=== PATIENT | female | born 1970 | race Caucasian/White ===

== ENCOUNTER 2024-03-25 03:42 | Inpatient (IN) | payer MEDICAID, OTHER ==
[~2024-03-25] VITALS: Ht 162.6 cm; Wt 89.7 kg
[2024-03-25 04:28] VITALS: PULSE 98; RESP 16; O2SAT 91
[2024-03-25] MEDS: cloNIDine HCL 0.1 MG TAB PO ONE (04:41)
[2024-03-25] MEDS: hydrALAZINE HCL 20 MG/ML VL IV ONE (04:42)
[2024-03-25 04:47] LABS: Basophils # (auto) 0.1 10 ^3/uL (0-0.2); Basophils % (auto) 0.9 % (0.0-2.0); Eosinophils # (auto) 0.4 10 ^3/uL (0-0.8); Eosinophils % (auto) 4.7 % (0.0-7.0); Hematocrit 31.2 % (36.0-46.0); Hemoglobin 10.6 g/dL (12.2-16.2); Lymphocytes # (auto) 1.6 10 ^3/uL (0.4-5.4); Mean Corpuscular Hemoglobin 30.4 pg (28.0-32.0); Mean Corpuscular Volume 89.5 fL (80.0-100.0); Monocytes # (auto) 0.5 10 ^3/uL (0-1.3); Monocytes % (auto) 6.5 % (0.0-12.0); Neutrophils # (auto) 5.7 10 ^3/uL (1.6-8.6); Neutrophils % (auto) 68.9 % (37.0-80.0); Red Blood Cells 3.48 10^6/uL (4.0-5.20); Red Cell Distribution Width 13.8 % (11.8-14.3); White Blood Cell 8.3 10^3/uL (4.4-10.8)
[2024-03-25 04:57] LABS: Alanine Aminotransferase 17 U/L (7-40); Albumin 3.5 g/dL (3.2-4.8); Alkaline Phosphatase 43 U/L (46-116); Anion Gap 7 (5-15); Aspartate Aminotransferase 17 U/L (13-40); Bilirubin, Total < 0.2 mg/dL (0.2-1.0); Blood Urea Nitrogen 36 mg/dL (9-23); Calcium 8.5 mg/dL (8.7-10.4); Carbon Dioxide 19 mmol/L (20-30); Chloride 114 mmol/L (98-107); Glucose 63 mg/dL (74-106); Potassium 4.8 mmol/L (3.5-5.1); Sodium 140 mmol/L (136-145); Total Protein 6.1 g/dL (5.7-8.2)
[2024-03-25] MEDS: DEXTROSE 10% 250 ML Bag IV ONE (04:57)
[2024-03-25] MEDS: DEXTROSE (50%) 50ML SYRG IV ONE (05:15)
[2024-03-25] MEDS ORDERED: D5W/LACTATED RINGERS 1,000 ML IV ONE (05:15)
[2024-03-25] MEDS: DEXTROSE 10% 1,000 ML IV ONE (05:55)
[2024-03-25] MEDS ORDERED: ONDANSETRON HCL 4 MG/2 ML VIAL IV PRN (07:00)
[2024-03-25] MEDS ORDERED: ACETAMINOPHEN 325 MG TAB PO PRN (07:00)
[2024-03-25] MEDS ORDERED: DEXTROSE (50%) 50ML SYRG IV PRN (07:00)
[2024-03-25] MEDS: DEXTROSE 10% 1,000 ML IV SCH (07:00)
[2024-03-25 07:32] LABS: Urine Blood 1+ /uL (Negative); Urine Clarity Turbid (Clear); Urine Color Colorless (Yellow); Urine Protein, UAD 3+ (Negative); Urine Specific Gravity 1.011 (1.001-1.035); Urine Urobilinogen Normal (Negative); Urine pH 6.5 (5.0-9.0)
[2024-03-25 07:44] VITALS: PULSE 93; RESP 15; O2SAT 100
[2024-03-25] MEDS: InsuLIN REG 1unit/0.01ml Soln (100units/ml) SC SCH (08:00)
[2024-03-25] MEDS: ACCU-CHEK COMFORT CURVE STRIP VI SCH (08:00)
[2024-03-25 09:04] LABS: Creatinine, Urine 40.43 mg/dL (30.0-125.0)
[2024-03-25 09:07] LABS: Protein, Urine 658.2 mg/dL (0.0-11.9)
[2024-03-25] MEDS: amLODIPine BESYLATE 5 MG TAB PO SCH (10:12)
[2024-03-25 11:02] LABS: Triglycerides 111 mg/dL (< 150)
[2024-03-25 11:03] LABS: LDL Cholesterol 64 mg/dL (< 100)
[2024-03-25 11:04] LABS: Cholesterol 159 mg/dL (< 200); HDL Cholesterol 72 mg/dL (40-59)
[2024-03-25] MEDS: SODIUM CHLORIDE 0.9% 1,000 ML IV SCH (13:00)
[2024-03-25 17:38] VITALS: BP 132/77; PULSE 86; RESP 19; TEMP 98.2; O2SAT 98
[2024-03-25] MEDS ORDERED: METF-371 PO (17:59)
[2024-03-25] MEDS ORDERED: GLIP5TAB21 PO (17:59)
[2024-03-25] MEDS ORDERED: GABA800T97 PO (17:59)
[2024-03-25] MEDS ORDERED: ATOR20TA50 PO (17:59)
[2024-03-25] MEDS ORDERED: INSU100I70 SC (17:59)
[2024-03-25] MEDS ORDERED: BENA-36 PO (17:59)
[2024-03-25] MEDS ORDERED: AMIT-256 PO (17:59)
[2024-03-25] MEDS ORDERED: DORZ2SOL26 EACHEYE (18:00)
[2024-03-25] MEDS ORDERED: FENO48TA13 PO (18:01)
[2024-03-25 20:00] VITALS: PULSE 94; RESP 20; O2SAT 99
[2024-03-25 21:00] VITALS: BP 161/94; PULSE 94; RESP 20; TEMP 98.2; O2SAT 99
[2024-03-25] MEDS: cefTRIAXone 1GM/50ML D5W 50 ML IV ONE (22:40)
[2024-03-26] VITALS (8 sets, daily range): BP systolic 127–153; BP diastolic 57–79; PULSE 85–95; RESP 18–20; TEMP 97.8–98.3; O2SAT 96–98
[2024-03-26] MEDS: hydrALAZINE HCL 20 MG/ML VL IV PRN (04:10)
[2024-03-26 07:04] LABS: Basophils # (auto) 0.1 10 ^3/uL (0-0.2); Basophils % (auto) 1.2 % (0.0-2.0); Eosinophils # (auto) 0.4 10 ^3/uL (0-0.8); Hematocrit 27.5 % (36.0-46.0); Hemoglobin 9.1 g/dL (12.2-16.2); Lymphocytes # (auto) 2.2 10 ^3/uL (0.4-5.4); Lymphocytes % (auto) 31.5 % (10.0-50.0); Mean Corpuscular Hemoglobin 29.4 pg (28.0-32.0); Mean Corpuscular Hgb Conc. 33.2 g/dL (32.0-36.0); Mean Corpuscular Volume 88.5 fL (80.0-100.0); Monocytes # (auto) 0.4 10 ^3/uL (0-1.3); Monocytes % (auto) 6.1 % (0.0-12.0); Neutrophils # (auto) 3.9 10 ^3/uL (1.6-8.6); Neutrophils % (auto) 56.2 % (37.0-80.0); Red Blood Cells 3.11 10^6/uL (4.0-5.20); Red Cell Distribution Width 13.9 % (11.8-14.3)
[2024-03-26 07:07] LABS: Alanine Aminotransferase 13 U/L (7-40); Albumin 2.8 g/dL (3.2-4.8); Alkaline Phosphatase 39 U/L (46-116); Anion Gap 8 (5-15); Aspartate Aminotransferase 13 U/L (13-40); BUN/Creatinine Ratio 10.9 (10.0-20.0); Bilirubin, Total 0.2 mg/dL (0.2-1.0); Blood Urea Nitrogen 31 mg/dL (9-23); Calcium 8.2 mg/dL (8.7-10.4); Carbon Dioxide 16 mmol/L (20-30); Chloride 116 mmol/L (98-107); Creatine Kinase IFCC 103 U/L (34-145); Glucose 100 mg/dL (74-106); Magnesium 1.9 mg/dL (1.6-2.6); Sodium 140 mmol/L (136-145); Total Protein 4.9 g/dL (5.7-8.2)
[2024-03-26] MEDS: SODIUM BICARBONATE 650 MG TAB PO ONE (15:30)
[2024-03-26] MEDS ORDERED: LINA145C PO (15:45)
[2024-03-26] MEDS ORDERED: CICL0.7746 TOP (15:45)
[2024-03-26] MEDS ORDERED: DICL1GEL59 TOP (15:45)
[2024-03-26] MEDS ORDERED: PRED1SUS31 OP (15:45)
[2024-03-26] MEDS ORDERED: DEXTROSE (50%) 50ML SYRG IV PRN (16:45)
[2024-03-26] MEDS: ACCU-CHEK COMFORT CURVE STRIP VI SCH (17:00)
[2024-03-26] MEDS: InsuLIN REG 1unit/0.01ml Soln (100units/ml) SC SCH (17:00)
[2024-03-26] MEDS: cefTRIAXone 1GM/50ML D5W 50 ML IV SCH (21:06)
[2024-03-27] VITALS (7 sets, daily range): BP systolic 122–209; BP diastolic 57–99; PULSE 88–94; RESP 16–18; TEMP 97.9–98.4; O2SAT 95–98
[2024-03-27 06:09] LABS: Basophils # (auto) 0.1 10 ^3/uL (0-0.2); Basophils % (auto) 0.9 % (0.0-2.0); Eosinophils # (auto) 0.4 10 ^3/uL (0-0.8); Eosinophils % (auto) 4.7 % (0.0-7.0); Hematocrit 27.8 % (36.0-46.0); Hemoglobin 9.2 g/dL (12.2-16.2); Lymphocytes # (auto) 2.1 10 ^3/uL (0.4-5.4); Lymphocytes % (auto) 28.4 % (10.0-50.0); Mean Corpuscular Volume 90.9 fL (80.0-100.0); Monocytes # (auto) 0.4 10 ^3/uL (0-1.3); Monocytes % (auto) 5.8 % (0.0-12.0); Neutrophils # (auto) 4.5 10 ^3/uL (1.6-8.6); Neutrophils % (auto) 60.2 % (37.0-80.0); Nucleated Red Blood Cells % 0.1 %; Red Blood Cells 3.05 10^6/uL (4.0-5.20); Red Cell Distribution Width 13.9 % (11.8-14.3); White Blood Cell 7.5 10^3/uL (4.4-10.8)
[2024-03-27 06:34] LABS: Alanine Aminotransferase 13 U/L (7-40); Albumin 2.8 g/dL (3.2-4.8); Alkaline Phosphatase 39 U/L (46-116); Anion Gap 7 (5-15); Aspartate Aminotransferase 12 U/L (13-40); BUN/Creatinine Ratio 11.4 (10.0-20.0); Blood Urea Nitrogen 32 mg/dL (9-23); Calcium 8.3 mg/dL (8.7-10.4); Carbon Dioxide 18 mmol/L (20-30); Chloride 117 mmol/L (98-107); Glucose 69 mg/dL (74-106); Magnesium 1.8 mg/dL (1.6-2.6); Potassium 4.5 mmol/L (3.5-5.1); Sodium 142 mmol/L (136-145)
[2024-03-27 06:35] LABS: Bilirubin, Total < 0.2 mg/dL (0.2-1.0)
[2024-03-27 07:04] LABS: Total Protein 4.9 g/dL (5.7-8.2)
[2024-03-27] MEDS: SODIUM BICARBONATE 650 MG TAB PO SCH (08:31)
[2024-03-27 12:02] LABS: % Iron Saturation 14.3 % (15-50)
[2024-03-27] MEDS: GABAPENTIN 400 MG CAP PO SCH (22:25)
[2024-03-27] MEDS: SODIUM BICARB 50mEq/50ml Vial 50 ML in SOD CHL 0.45% 1,000 ML IV SCH (22:54)
[2024-03-28] VITALS (7 sets, daily range): BP systolic 139–179; BP diastolic 68–89; PULSE 88–98; RESP 16–20; TEMP 97.2–98.5; O2SAT 96–97
[2024-03-28 08:24] LABS: Basophils # (auto) 0.1 10 ^3/uL (0-0.2); Basophils % (auto) 0.8 % (0.0-2.0); Eosinophils # (auto) 0.3 10 ^3/uL (0-0.8); Eosinophils % (auto) 4.4 % (0.0-7.0); Hematocrit 27.2 % (36.0-46.0); Hemoglobin 9.1 g/dL (12.2-16.2); Lymphocytes # (auto) 2.3 10 ^3/uL (0.4-5.4); Lymphocytes % (auto) 28.7 % (10.0-50.0); Mean Corpuscular Hemoglobin 29.6 pg (28.0-32.0); Mean Corpuscular Hgb Conc. 33.3 g/dL (32.0-36.0); Mean Corpuscular Volume 88.9 fL (80.0-100.0); Monocytes # (auto) 0.4 10 ^3/uL (0-1.3); Monocytes % (auto) 5.7 % (0.0-12.0); Neutrophils # (auto) 4.7 10 ^3/uL (1.6-8.6); Neutrophils % (auto) 60.4 % (37.0-80.0); Nucleated Red Blood Cells % 0.2 %; Red Blood Cells 3.07 10^6/uL (4.0-5.20); White Blood Cell 7.9 10^3/uL (4.4-10.8)
[2024-03-28 08:42] LABS: Alanine Aminotransferase 14 U/L (7-40); Albumin 2.8 g/dL (3.2-4.8); Alkaline Phosphatase 40 U/L (46-116); Anion Gap 7 (5-15); Aspartate Aminotransferase 9 U/L (13-40); Blood Urea Nitrogen 31 mg/dL (9-23); Calcium 8.4 mg/dL (8.5-10.1); Carbon Dioxide 19 mmol/L (20-30); Chloride 116 mmol/L (98-107); Glucose 86 mg/dL (74-106); Magnesium 1.9 mg/dL (1.6-2.6); Potassium 4.8 mmol/L (3.5-5.1); Sodium 142 mmol/L (136-145)
[2024-03-28 08:43] LABS: Bilirubin, Total 0.2 mg/dL (0.2-1.0)
[2024-03-28] MEDS: amLODIPine BESYLATE 5 MG TAB PO SCH (09:19)
[2024-03-28] MEDS: PANTOPRAZOLE 40 MG TAB PO ONE (13:06)
[2024-03-28] MEDS: SODIUM BICARBONATE 650 MG TAB PO SCH (13:06)
[2024-03-28] MEDS ORDERED: CEPH250C PO (19:09)
[2024-03-28] MEDS ORDERED: AML5T PO (19:09)
[2024-03-28] MEDS ORDERED: SODI650T PO (19:09)
[2024-03-28] MEDS ORDERED: HYDR25TA87 PO (19:10)
[2024-03-29] MEDS ORDERED: PANTOPRAZOLE 40 MG TAB PO SCH (06:00)
[2024-03-29 08:06] LABS: Immunoglobulin A 293 mg/dL (87-352); Immunoglobulin G, Serum 772 mg/dL (586-1602); Immunoglobulin M 18 mg/dL (26-217)
[2024-03-29] MEDS ORDERED: FUROSEMIDE 40 MG TAB PO SCH (10:00)
== END 2024-03-28 21:18 | disposition home or self-care (01) | DRG 420 ==
LOC: EDBD 03:42 → ER 03:51 → OVERFLOW 06:57 → WEST WING 17:35
PROVIDERS: ADMIT Internal Medicine; ATTEND Pediatrics Pediatric Pulmonology
DX: E11.649 Type 2 diabetes mellitus with hypoglycemia without coma (principal); G93.41 Metabolic encephalopathy; N17.9 Acute kidney failure, unspecified; E87.20 Acidosis, unspecified; D63.1 Anemia in chronic kidney disease; E11.319 Type 2 diabetes mellitus with unspecified diabetic retinopathy without macular edema; E11.22 Type 2 diabetes mellitus with diabetic chronic kidney disease; H54.61 Unqualified visual loss, right eye, normal vision left eye; I12.9 Hypertensive chronic kidney disease with stage 1 through stage 4 chronic kidney disease, or unspecified chronic kidney disease; I16.1 Hypertensive emergency; N39.0 Urinary tract infection, site not specified; N18.30 Chronic kidney disease, stage 3 unspecified; E11.40 Type 2 diabetes mellitus with diabetic neuropathy, unspecified; N20.0 Calculus of kidney; E55.9 Vitamin D deficiency, unspecified; E66.9 Obesity, unspecified; R33.9 Retention of urine, unspecified; M54.9 Dorsalgia, unspecified; I48.91 Unspecified atrial fibrillation; Z79.4 Long term (current) use of insulin; Z82.49 Family history of ischemic heart disease and other diseases of the circulatory system; Z83.3 Family history of diabetes mellitus; Z68.33 Body mass index [BMI] 33.0-33.9, adult
CPT/HCPCS: 36415; 70450; 71045; 76775; 80053; 80061; 81003; 82043; 82306; 82550; 82570; 82784; 82962; 83036; 83540; 83550; 83735; 83935; 84156; 84300; 84443; 85025; 86334; 87086; 93005; 93306; 96361; 96374; 96375; 99291; G0378; J1815

== ENCOUNTER 2024-05-21 14:31 | Inpatient (IN) | payer MEDICAID ==
[~2024-05-21] VITALS: Ht 162.6 cm; Wt 80.4 kg
[~2024-05-21 14:31] MED LIST: AMIT-256 PO; AML5T PO; ATOR20TA50 PO; CEPH250C PO; CICL0.7746 TOP; DICL1GEL59 TOP; DORZ2SOL26 EACHEYE; FENO48TA13 PO; GABA800T97 PO; HYDR25TA87 PO; LINA145C PO; PRED1SUS31 OP; SODI650T PO
[2024-05-21 15:38] LABS: Basophils # (auto) 0.1 10 ^3/uL (0-0.2); Eosinophils # (auto) 0.4 10 ^3/uL (0-0.8); Hematocrit 29.9 % (36.0-46.0); Hemoglobin 10.3 g/dL (12.2-16.2); Lymphocytes # (auto) 1.5 10 ^3/uL (0.4-5.4); Lymphocytes % (auto) 16.7 % (10.0-50.0); Mean Corpuscular Hgb Conc. 34.3 g/dL (32.0-36.0); Mean Corpuscular Volume 87.5 fL (80.0-100.0); Monocytes # (auto) 0.5 10 ^3/uL (0-1.3); Monocytes % (auto) 5.6 % (0.0-12.0); Neutrophils # (auto) 6.7 10 ^3/uL (1.6-8.6); Neutrophils % (auto) 72.7 % (37.0-80.0); Platelet Count (auto) 235 10^3/uL (140-450); Red Blood Cells 3.42 10^6/uL (4.0-5.20); Red Cell Distribution Width 13.9 % (11.8-14.3); White Blood Cell 9.1 10^3/uL (4.4-10.8)
[2024-05-21 15:56] LABS: Alanine Aminotransferase 10 U/L (7-40); Albumin 3.5 g/dL (3.2-4.8); Alkaline Phosphatase 56 U/L (46-116); Anion Gap 8 (5-15); Aspartate Aminotransferase 8 U/L (13-40); BUN/Creatinine Ratio 11.4 (10.0-20.0); Blood Urea Nitrogen 44 mg/dL (9-23); Calcium 8.8 mg/dL (8.7-10.4); Carbon Dioxide 21 mmol/L (20-30); Chloride 111 mmol/L (98-107); Glucose 220 mg/dL (74-106); Potassium 4.2 mmol/L (3.5-5.1); Sodium 140 mmol/L (136-145)
[2024-05-21 15:57] LABS: Bilirubin, Total 0.3 mg/dL (0.2-1.0); Total Protein 6.3 g/dL (5.7-8.2)
[2024-05-21] MEDS: FUROSEMIDE 40 MG/4 ML VIAL IV ONE (20:02)
[2024-05-21] MEDS ORDERED: cloNIDine HCL 0.1 MG TAB PO PRN (20:30)
[2024-05-21] MEDS ORDERED: DEXTROSE (50%) 50ML SYRG IV PRN (20:30)
[2024-05-21] MEDS ORDERED: ONDANSETRON HCL 4 MG/2 ML VIAL IV PRN (20:30)
[2024-05-21] MEDS ORDERED: TEMAZEPAM 15 MG CAP PO PRN (20:30)
[2024-05-21] MEDS: HYDROcodone-ACET 5/325MG TAB PO ONE (21:12)
[2024-05-21] MEDS: SODIUM BICARBONATE 650 MG TAB PO SCH (21:34)
[2024-05-21] MEDS: hydrALAZINE HCL 25 MG TAB PO SCH (22:00)
[2024-05-21] MEDS: InsuLIN REG 1unit/0.01ml Soln (100units/ml) SC SCH (22:00)
[2024-05-21] MEDS: ACCU-CHEK COMFORT CURVE STRIP VI SCH (22:00)
[2024-05-21] MEDS: GABAPENTIN 400 MG CAP PO SCH (22:39)
[2024-05-22] VITALS (9 sets, daily range): BP systolic 120–165; BP diastolic 54–79; PULSE 83–91; RESP 18–20; TEMP 97.6–98.6; O2SAT 0–100
[2024-05-22] MEDS: FUROSEMIDE 40 MG TAB PO SCH (05:27)
[2024-05-22 06:18] LABS: INR 1.1 (0.9-1.15); Prothrombin Time 11.6 sec (9.3-11.8)
[2024-05-22 06:26] LABS: Albumin 3.3 g/dL (3.2-4.8); Alkaline Phosphatase 53 U/L (46-116); Anion Gap 10 (5-15); Aspartate Aminotransferase 11 U/L (13-40); BUN/Creatinine Ratio 11.9 (10.0-20.0); Blood Urea Nitrogen 43 mg/dL (9-23); Calcium 8.7 mg/dL (8.7-10.4); Carbon Dioxide 21 mmol/L (20-30); Chloride 110 mmol/L (98-107); Glucose 100 mg/dL (74-106); Sodium 141 mmol/L (136-145)
[2024-05-22 06:27] LABS: Bilirubin, Total 0.3 mg/dL (0.2-1.0); Total Protein 5.8 g/dL (5.7-8.2)
[2024-05-22 06:34] LABS: Alanine Aminotransferase 9 U/L (7-40)
[2024-05-22 09:09] LABS: Hepatitis B Surface Antigen Negative (Negative)
[2024-05-22 09:30] LABS: Hepatitis A Ab IgM Negative; Hepatitis B Core IgM Negative
[2024-05-22 09:31] LABS: Hepatitis C Antibody Negative (Negative)
[2024-05-22] MEDS: amLODIPine BESYLATE 5 MG TAB PO SCH (09:59)
[2024-05-22] MEDS: ERGOCALCIFEROL 50,000 UNIT(1.25MG) CAP PO SCH (09:59)
[2024-05-22 10:25] LABS: Urine Bacteria None Seen /hpf (None Seen)
[2024-05-22 10:30] LABS: Urine Blood TRACE /uL (Negative); Urine Clarity Clear (Clear); Urine Color Light-Yellow (Yellow); Urine Protein, UAD 3+ (Negative); Urine Specific Gravity 1.011 (1.001-1.035); Urine Urobilinogen Normal (Negative); Urine WBC 2 /hpf (0 - 5); Urine pH 6.5 (5.0-9.0)
[2024-05-22 10:41] LABS: Creatinine, Urine 49.18 mg/dL (30.0-125.0)
[2024-05-22 10:43] LABS: Protein, Urine 517.2 mg/dL (0.0-11.9); Urine Protein/Creatinine Ratio 10.52
[2024-05-22] MEDS: ACETAMINOPHEN 325 MG TAB PO PRN (11:57)
[2024-05-22] MEDS: GABAPENTIN 300 MG CAP PO SCH (21:32)
[2024-05-23] VITALS (8 sets, daily range): BP systolic 91–144; BP diastolic 31–69; PULSE 83–88; RESP 16–20; TEMP 98.2–98.7; O2SAT 0–100
[2024-05-23 07:24] LABS: Chloride 109 mmol/L (98-107); Potassium 4.2 mmol/L (3.5-5.1); Sodium 141 mmol/L (136-145)
[2024-05-23 07:25] LABS: Anion Gap 10 (5-15); Calcium 8.3 mg/dL (8.7-10.4); Carbon Dioxide 22 mmol/L (20-30)
[2024-05-23 07:30] LABS: Blood Urea Nitrogen 49 mg/dL (9-23); Glucose 109 mg/dL (74-106)
[2024-05-23 07:33] LABS: % Iron Saturation 19.1 % (15-50)
[2024-05-23 08:06] LABS: Complement C3 106 mg/dL (82-167); Immunoglobulin A 349 mg/dL (87-352); Immunoglobulin G, Serum 823 mg/dL (586-1602); Immunoglobulin M 26 mg/dL (26-217)
[2024-05-23] MEDS ORDERED: fentaNYL CITRATE 100 MCG/2 ML VL ONE (09:03)
[2024-05-23] MEDS ORDERED: MIDAZOLAM HCL 2MG/2ML 2ml VIAL (1mg/ml) ONE (09:03)
[2024-05-23 09:07] LABS: Anti-Nuclear Antibody Direct Positive (Negative)
[2024-05-23] MEDS ORDERED: TAMS0.4C39 PO (09:46)
[2024-05-23] MEDS ORDERED: METF-371 PO (09:46)
[2024-05-23] MEDS ORDERED: FURO1TAB77 PO (09:46)
[2024-05-23] MEDS ORDERED: BENA-36 PO (09:46)
[2024-05-23] MEDS ORDERED: SITA25TA3 PO (09:46)
[2024-05-23] MEDS ORDERED: DORZ1SOL3 EACHEYE (09:46)
[2024-05-23] MEDS ORDERED: HYDR50TA47 PO (09:46)
[2024-05-23] MEDS ORDERED: GLIP5TAB21 PO (09:46)
[2024-05-23 10:07] LABS: Albumin 2.5 g/dL (2.9-4.4); Alpha-1-Globulin 0.3 g/dL (0.0-0.4); Alpha-2-Globulin 0.9 g/dL (0.4-1.0); Gamma Globulin 0.9 g/dL (0.4-1.8); Globulin Total 3.1 g/dL (2.2-3.9); Protein Total Serum 5.6 g/dL (6.0-8.5)
[2024-05-23 12:07] LABS: Anti-dsDNA Antibody 20 IU/mL (0-9); RNP Antibody <0.2 AI (0.0-0.9); Sjogren's Anti-SS-A Antibody <0.2 AI (0.0-0.9); Sjogren's Anti-SS-B Antibody <0.2 AI (0.0-0.9); Smith Antibody <0.2 AI (0.0-0.9)
[2024-05-23] MEDS: hydrOXYchloroQUINE SULFATE 200 MG TAB PO ONE (14:15)
[2024-05-23] MEDS: methylPREDNISolone SOD SUCC 1,000 MG in SODIUM CHL 0.9% 250 ML IV SCH (16:17)
[2024-05-23] MEDS ORDERED: DEXTROSE (50%) 50ML SYRG IV PRN (18:15)
[2024-05-23] MEDS: FUROSEMIDE 100 MG/10ML VIAL IV ONE (19:15)
[2024-05-24] MEDS: ACCU-CHEK COMFORT CURVE STRIP VI SCH (00:10)
[2024-05-24] MEDS: InsuLIN REG 1unit/0.01ml Soln (100units/ml) SC SCH (00:13)
[2024-05-24 05:00] VITALS: BP_SYST 108; BP_SYST 138; BP_SYST 151; BP_DIAS 57; BP_DIAS 63; BP_DIAS 71; PULSE 86; PULSE 87; RESP 18; TEMP 97.9; O2SAT 90; O2SAT 95; O2SAT 97
[2024-05-24] MEDS: FUROSEMIDE 100 MG/10ML VIAL IV SCH (05:40)
[2024-05-24 08:00] VITALS: O2SAT 0
[2024-05-24 09:00] VITALS: BP 148/66; PULSE 61; RESP 18; TEMP 98.6; O2SAT 92
[2024-05-24] MEDS: hydrOXYchloroQUINE SULFATE 200 MG TAB PO SCH (09:15)
[2024-05-24 11:12] LABS: Basophils # (auto) 0 10 ^3/uL (0-0.2); Basophils % (auto) 0.1 % (0.0-2.0); Eosinophils # (auto) 0 10 ^3/uL (0-0.8); Hematocrit 27.6 % (36.0-46.0); Hemoglobin 9.5 g/dL (12.2-16.2); Lymphocytes # (auto) 1.4 10 ^3/uL (0.4-5.4); Lymphocytes % (auto) 14.9 % (10.0-50.0); Mean Corpuscular Hemoglobin 30.1 pg (28.0-32.0); Mean Corpuscular Hgb Conc. 34.3 g/dL (32.0-36.0); Mean Corpuscular Volume 87.6 fL (80.0-100.0); Monocytes # (auto) 0.1 10 ^3/uL (0-1.3); Monocytes % (auto) 0.7 % (0.0-12.0); Neutrophils # (auto) 7.7 10 ^3/uL (1.6-8.6); Neutrophils % (auto) 84.3 % (37.0-80.0); Nucleated Red Blood Cells % 0.1 %; Platelet Count (auto) 229 10^3/uL (140-450); Red Blood Cells 3.15 10^6/uL (4.0-5.20); Red Cell Distribution Width 13.6 % (11.8-14.3); White Blood Cell 9.1 10^3/uL (4.4-10.8)
[2024-05-24 11:42] LABS: Albumin 3.4 g/dL (3.2-4.8); Alkaline Phosphatase 56 U/L (46-116); Anion Gap 8 (5-15); Aspartate Aminotransferase < 8 U/L (13-40); BUN/Creatinine Ratio 11.3 (10.0-20.0); Bilirubin, Total 0.3 mg/dL (0.2-1.0); Blood Urea Nitrogen 46 mg/dL (9-23); Calcium 8.7 mg/dL (8.7-10.4); Carbon Dioxide 21 mmol/L (20-30); Chloride 109 mmol/L (98-107); Glucose 195 mg/dL (74-106); Sodium 138 mmol/L (136-145); Total Protein 6.2 g/dL (5.7-8.2)
[2024-05-24 11:52] LABS: Alanine Aminotransferase < 9 U/L (7-40)
[2024-05-24 11:55] LABS: Erythrocyte Sedimentation Rate 67 mm/hr (0-20)
[2024-05-26 19:06] LABS: Antimyeloperoxidase (MPO) Ab <0.2 units (0.0-0.9); Antiproteinase 3 (PR-3) Ab <0.2 units (0.0-0.9)
[2024-05-27 12:06] LABS: Cytoplasmic (C-ANCA) <1:20 titer (Neg:<1:20); Perinuclear (P-ANCA) <1:20 titer (Neg:<1:20)
[2024-05-27 17:06] LABS: Antiglomerular BM Antibody <0.2 units (0.0-0.9)
[2024-05-28 16:06] LABS: Anticardiolipin IgG Antibody <9 GPL U/mL (0-14); Anticardiolipin IgM Antibody <9 MPL U/mL (0-12)
[2024-05-29 15:07] LABS: Dilute Prothrombin Time(dPT) 32.7 sec (0.0-47.6); Lupus Interpretation Comment: (.); PTT-LA 33.6 sec (0.0-43.5); Thrombin Time 16.3 sec (0.0-23.0); dPT Confirm Ratio 0.98 Ratio (0.00-1.34); dRVVT 37.5 sec (0.0-47.0)
== END 2024-05-24 11:50 | disposition left against medical advice (07) | DRG 346 ==
LOC: ER 14:31 → OVERFLOW 20:30 → CENTRAL 23:08
PROVIDERS: ADMIT Nurse Practitioner; ATTEND Family Medicine
PROC: 0TB03ZX Excision of Right Kidney, Percutaneous Approach, Diagnostic (ICD-10-PCS; principal; 2024-05-23)
DX: M32.14 Glomerular disease in systemic lupus erythematosus (principal); I50.33 Acute on chronic diastolic (congestive) heart failure; N17.9 Acute kidney failure, unspecified; M31.9 Necrotizing vasculopathy, unspecified; D63.1 Anemia in chronic kidney disease; I95.9 Hypotension, unspecified; I48.21 Permanent atrial fibrillation; E11.22 Type 2 diabetes mellitus with diabetic chronic kidney disease; N05.9 Unspecified nephritic syndrome with unspecified morphologic changes; I13.2 Hypertensive heart and chronic kidney disease with heart failure and with stage 5 chronic kidney disease, or end stage renal disease; E55.9 Vitamin D deficiency, unspecified; K80.20 Calculus of gallbladder without cholecystitis without obstruction; E66.9 Obesity, unspecified; N18.5 Chronic kidney disease, stage 5; E78.5 Hyperlipidemia, unspecified; Z79.2 Long term (current) use of antibiotics; Z79.899 Other long term (current) drug therapy; Z79.4 Long term (current) use of insulin; Z83.3 Family history of diabetes mellitus; Z82.49 Family history of ischemic heart disease and other diseases of the circulatory system; Z68.30 Body mass index [BMI] 30.0-30.9, adult; E11.40 Type 2 diabetes mellitus with diabetic neuropathy, unspecified; M94.0 Chondrocostal junction syndrome [Tietze]
CPT/HCPCS: 36415; 74176; 76775; 76942; 80048; 80053; 80074; 81001; 82570; 82728; 82784; 82962; 83520; 83540; 83550; 83605; 84100; 84155; 84156; 84165; 84484; 85025; 85610; 85613; 85652; 85670; 85705; 85732; 86038; 86141; 86147; 86160; 86256; 86334; 96374; G0378; J1815; J2250